=== PATIENT | male | born 1945 | race Caucasian/White ===

== ENCOUNTER 2016-08-01 02:20 | Inpatient (IN) ==
[2016-07-26 14:14] LABS: MANUAL DIFF NEEDED? NO; URINE MICRO REVIEW NEEDED? NO; URINE SOURCE VOIDED
[2016-07-26 14:18] LABS: BASO% 0.2 % (0.0-0.8); EOS# 0.35 X1000 (0.0-0.7); HEMATOCRIT 44.4 % (42.0-52.0); LYMPH# 3.38 X1000 (1.2-3.4); LYMPH% 38.9 % (20.5-51.1); MCH 31.7 PG (27-31); MCHC 33.8 g/dL (33-37); MCV 93.9 FL (81-99); MONO# 1.15 X1000 (0.11-0.59); MONO% 13.2 % (1.7-9.3); MPV 11.3 FL (7.4-10.4); NEUT% 43.7 % (42.2-75.2); PLT 162 X1000 (130-400); RBC 4.73 XMIL (4.7-6.1)
[2016-07-26 14:19] LABS: BILIRUBIN URINE NEGATIVE (NEGATIVE); BLOOD URINE NEGATIVE (NEGATIVE); COLOR YELLOW; GLUCOSE URINE NEGATIVE (NEGATIVE); LEUKOCYTES URINE NEGATIVE (NEGATIVE); NITRITE URINE NEGATIVE (NEGATIVE); PH URINE 5.5; PROTEIN URINE TRACE mg/dL (NEGATIVE); SP GRAVITY URINE 1.029; TURBIDITY URINE CLEAR (CLEAR); UROBILINOGEN URINE 2 mg/dL (NORMAL)
[2016-07-26 14:21] LABS: UR EPITHELIAL CELLS <10 /HPF (<10); URINE BACTERIA NEGATIVE /HPF; URINE RBC <10 /HPF (<10); URINE WBC <10 /HPF (<10)
[2016-07-26 14:36] LABS: INR 1.04; PROTIME 10.9 Seconds (9.2-11.7); PTT 22.2 Seconds (22.0-36.0)
[2016-07-26 15:28] LABS: AGAP 13; BUN 15 mg/dL (8-22); CALCIUM 9.3 mg/dL (8.8-10.2); CHLORIDE 102 mmol/L (98-107); COSMO 283; POTASSIUM 3.5 mmol/L (3.5-5.1); SODIUM 142 mmol/L (136-145); TCO2 27 mmol/L (25-35)
--- NOTE | 2016-07-26 15:45 | EKG Report ---
Test Performed on : 07/26/2016 1:46:29 PM Test Reason : PAT Blood Pressure : / mmHG Vent. Rate : 070 BPM Atrial Rate : 070 BPM P-R Int : 194 ms QRS Dur : 116 ms QT Int : 426 ms P-R-T Axes : 051 007 029 degrees QTc Int : 460 ms Normal sinus rhythm. Incomplete right bundle branch block Borderline ECG No previous ECGs available Confirmed by Inder ALFREDO, Loki Sanders ([id number]) on 07/27/2016 6:32:18 PM
[2016-08-01] MEDS ORDERED: MORPHINE IV PRN (06:50)
[2016-08-01] MEDS ORDERED: COLACE ONE (07:35)
[2016-08-01] MEDS ORDERED: PEPCID ONE (07:35)
[2016-08-01] MEDS ORDERED: LR 1,000 ML ONE (07:36)
[2016-08-01] MEDS ORDERED: REGLAN ONE (07:36)
[2016-08-01] MEDS ORDERED: LYRICA ONE (07:36)
[2016-08-01] MEDS ORDERED: KEFZOL 2 GM/D5W 2 GM/50 ML IVPB ONE (07:36)
[2016-08-01] MEDS ORDERED: CELEBREX ONE (07:36)
[2016-08-01] MEDS ORDERED: TORADOL ONE (08:03)
[2016-08-01] MEDS ORDERED: VANCOMYCIN ONE (08:04)
[2016-08-01] MEDS ORDERED: SODIUM CHLORIDE 0.9% ONE (08:04)
[2016-08-01] MEDS ORDERED: DURAMORPH ONE (08:04)
[2016-08-01] MEDS ORDERED: MARCAINE 0.25% PF/EPI 1:200,000 ONE (08:04)
[2016-08-01] MEDS ORDERED: EXPAREL 1.3% ONE (08:04)
[2016-08-01] MEDS ORDERED: NEOSPORIN G.U. IRRIGANT ONE (08:04)
[2016-08-01] MEDS ORDERED: CLAVE SECONDARY SET 11953 ONE (08:04)
[2016-08-01] MEDS ORDERED: CYKLOKAPRON 1,000 MG/NS 1,000 MG/100 ML IVPB ONE ×2 (08:07)
[2016-08-01] MEDS ORDERED: CELEBREX PO SCH (09:00)
[2016-08-01] MEDS ORDERED: COLACE PO SCH (09:00)
[2016-08-01 09:40] LABS: URINE MICRO REVIEW NEEDED? NO; URINE SOURCE VOIDED
[2016-08-01 09:45] LABS: BILIRUBIN URINE NEGATIVE (NEGATIVE); BLOOD URINE NEGATIVE (NEGATIVE); COLOR YELLOW; GLUCOSE URINE NEGATIVE (NEGATIVE); LEUKOCYTES URINE NEGATIVE (NEGATIVE); NITRITE URINE NEGATIVE (NEGATIVE); PROTEIN URINE 30 mg/dL (NEGATIVE); SP GRAVITY URINE 1.034; TURBIDITY URINE CLEAR (CLEAR); UR EPITHELIAL CELLS <10 /HPF (<10); URINE BACTERIA NEGATIVE /HPF; URINE RBC <10 /HPF (<10); URINE WBC <10 /HPF (<10); UROBILINOGEN URINE NORMAL (NORMAL)
[2016-08-01] MEDS ORDERED: NS 1,000 ML ONE (10:51)
[2016-08-01] MEDS: NS 1,000 ML IV SCH (11:50)
--- NOTE | 2016-08-01 13:57 | OPERATIVE NOTE ---
PROCEDURE DATE: 08/01/2016 PREOPERATIVE DIAGNOSIS: Degenerative joint disease, right knee. POSTOPERATIVE DIAGNOSIS: Degenerative joint disease, right knee. PROCEDURE PERFORMED: Right total knee replacement. SURGEON: Karen Andrade MD REPRINT SORTER: ARACELY Sharp ANESTHESIA: Spinal. COMPLICATION: None. PROCEDURE IN DETAIL: This 70-year-old male presents for right knee replacement. Risks, benefits, and no guarantees were discussed, and the patient is willing to proceed. He was taken to the operating room and satisfactory anesthesia obtained. The right knee was prepped and draped in usual sterile fashion. A time-out was taken to confirm operative site, procedure, and patient. The leg was wrapped with an Esmarch and the tourniquet inflated 350 mmHg. A midline incision was made, followed by a quad tendon sparing arthrotomy. The patella was everted and resurfaced with freehand technique. With the patella subluxed laterally. The knee was flexed. An intramedullary guide used to place the tibial cutting block in 5 degrees of valgus. The distal femoral resection was made with additional +1 mm cut due to a flexion contracture. The distal femur was sized to a DePuy Attune size 7 femoral component. The 4 in 1 block was secured and the anterior, posterior, and chamfer cuts sequentially made. The notch was created for posterior stabilized design using the provided notch guide. Any osteophytes were debrided about the femur. The knee was flexed and a PCL retractor placed behind the tibia to protect the neurovascular bundle. The tibial cutting block was secured with extramedullary alignment and tibial resection made. Flexion and extension gaps were noted to be slightly tight. An additional 2 mm taken off the tibia. The tibia was sized to a size 8 tibial tray. A trial reduction was performed with good stability with a size 7 mm thick poly. The patella was sized to a 41 medialized dome patella. The drill paddle used to prepare for the patellar implant. All trial components were removed and the bony surfaces thoroughly irrigated with pulsatile lavage. Cement with a gram of vancomycin was then utilized to cement a DePuy size 8 Attune rotating platform tibial tray, a size 7 right cruciate retaining Attune femoral component and a 41 medialized dome patella. While the cement cured, the joint capsule was injected with Exparel for pain management and a Hemovac drain placed. After curing of the cement, excess cement was removed with an osteotome if needed and a size 7, 7 mm thick posterior stabilized tibial poly placed in the tibial tray and the knee reduced. Final range of motion was 0-120 degrees with good soft tissue balance and midline patellar tracking. The arthrotomy was then copiously irrigated and closed over the drain with #1 Vicryl in the arthrotomy, 2-0 Vicryl in the subcutaneous, and skin xuan on the skin edges. Sterile dressings completed the closure and the patient was recovered from anesthesia and transferred to the recovery room in stable condition. No intraoperative complications were noted. Instrument count and sponge count was correct at the time of closure. cc: Abbe Andrade MD
[2016-08-01] MEDS: KEFZOL 1 GM/D5W 1 GM/50 ML IVPB IV SCH (17:08)
[2016-08-01] MEDS: OCUVITE LUTEIN & ZEAXANTHIN PO SCH (17:10)
[2016-08-01] MEDS: PRILOSEC PO SCH ×2 (17:10→22:00)
[2016-08-01] MEDS: LASIX PO SCH ×2 (17:11→19:32)
[2016-08-01] MEDS: IMDUR PO SCH (17:11)
[2016-08-01] MEDS ORDERED: VERSED ONE (18:12)
--- NOTE | 2016-08-01 18:12 | PROGRESS NOTE ---
DATE: 08/01/2016 Mr. Russ is seen for postoperative care of his total knee. He is doing well at the present time. He is awake and alert. He reports minimal pain. The incision is clean and dry and bandage intact. He is motor and sensory intact. Vital signs are stable. cc: Abbe Andrade MD
[2016-08-01] MEDS ORDERED: FENTANYL ONE (18:13)
[2016-08-01] MEDS ORDERED: DIPRIVAN 1% ONE (18:13)
[2016-08-01] MEDS: NORCO-10 PO PRN ×2 (19:32→23:16)
--- NOTE | 2016-08-01 20:50 | Diag Imaging Result Document ---
PROCEDURE NAME: KNEE 1-2 VIEWS-RIGHT - 08/01/2016 RIGHT KNEE, PORTABLE 2 VIEWS: There has been orthopedic replacement of the right knee. Good alignment to the femoral and tibial components. There are anterior skin xuan as well as a superior surgical drain. No fracture or dislocation. IMPRESSION: Recently replaced right knee.
[2016-08-01] MEDS ORDERED: LIPITOR PO SCH (21:00)
[2016-08-01] MEDS ORDERED: TOPROL XL PO SCH (21:00)
[2016-08-01] MEDS ORDERED: ZYRTEC PO SCH (21:00)
[2016-08-01] MEDS: GLUCOSAMINE 500 MG/CHONDROITIN 400 MG PO SCH (21:59)
[2016-08-01] MEDS: COLACE PO SCH (22:00)
[2016-08-01] MEDS: PERIDEX MT SCH (22:00)
[2016-08-02] MEDS: KEFZOL 1 GM/D5W 1 GM/50 ML IVPB IV SCH (00:08)
[2016-08-02] MEDS: NS 1,000 ML IV SCH (00:11)
[2016-08-02 05:42] LABS: HEMATOCRIT 36.1 % (42.0-52.0); HEMOGLOBIN 12.3 g/dL (14.0-18.0)
[2016-08-02 06:00] LABS: AGAP 13; BUN 14 mg/dL (8-22); CALCIUM 8.6 mg/dL (8.8-10.2); CHLORIDE 104 mmol/L (98-107); COSMO 283; POTASSIUM 4.3 mmol/L (3.5-5.1); SODIUM 141 mmol/L (136-145); TCO2 24 mmol/L (25-35)
[2016-08-02] MEDS ORDERED: XARELTO PO SCH (06:00)
[2016-08-02] MEDS: NORCO-10 PO PRN ×2 (06:05→10:33)
[2016-08-02] MEDS: PRILOSEC PO SCH (06:31)
[2016-08-02 07:39] VITALS: BP 112/55
[2016-08-02] MEDS: GLUCOSAMINE 500 MG/CHONDROITIN 400 MG PO SCH (07:51)
[2016-08-02] MEDS: COLACE PO SCH (07:51)
[2016-08-02] MEDS: IMDUR PO SCH (07:51)
[2016-08-02] MEDS: OCUVITE LUTEIN & ZEAXANTHIN PO SCH (07:51)
[2016-08-02] MEDS: PERIDEX MT SCH (07:52)
[2016-08-02] MEDS: LASIX PO SCH (07:52)
--- NOTE | 2016-08-02 07:58 | HISTORY AND PHYSICAL ---
CHIEF COMPLAINT: Right knee pain. HISTORY OF PRESENT ILLNESS: This is a 70-year-old male with a history of gradually increasing pain in his right knee. He states he has had a long history of knee pain. He has had a knee scoped in the past which only helped for a short period of time. He was evaluated in the office and found to need a right total knee arthroplasty. The surgical procedure as well as risks and benefits were explained to the patient at this time and he agreed to proceed. ALLERGIES: Mycins. PAST MEDICAL HISTORY: Serious illnesses: Sleep apnea, hypertension, coronary artery disease. PAST SURGICAL HISTORY: He has had back surgery x3, both knees scoped, and both shoulders. REGULAR MEDICATIONS: Aspirin 81 one a day, atorvastatin 40 one at night, Zyrtec 10 one a day, Lasix 40 one a day, isosorbide 60 one a day, meloxicam 15 one a day, Toprol-XL 25 at night, omeprazole 20 twice a day. REVIEW OF SYSTEMS: HEENT: Has history of sleep apnea and history of macular degeneration. Heart: States he does not have chest pain and has never had an TN but he gives a vague history of the arteries around his heart are small. Respiratory: No history of asthma, emphysema, shortness of breath. Abdomen: He has a history of reflux; takes medication for this. No history of bowel or bladder abnormalities. PHYSICAL EXAMINATION: GENERAL: This is a 70-year-old male, alert and oriented. His primary care physician is Dr. Hilario. HEENT: Pupils equal, round, reactive. NECK: Good range of motion without adenopathy. RESPIRATORY: Respirations equal and unlabored, clear bilaterally. HEART: Regular rate and rhythm. ABDOMEN: Soft, nontender. Bowel sounds present. EXTREMITIES: He complains of pain in his right knee. He does have some swelling at this time. He has difficulty walking. He has good sensation and pulses distally. IMPRESSION: Degenerative disease, right knee. PLAN: Admit at this time for right total knee arthroplasty. Dictated by John Paz RN for Abbe Andrade MD This chart was documented by the indicated scribe, John Paz RN and accurately reflects the services I performed and decisions made by me, Abbe Andrade MD, as attested by the provider's signature. cc: Abbe Andrade MD
[2016-08-02] MEDS ORDERED: CELEBREX PO SCH (09:00)
[2016-08-02] MEDS ORDERED: FISH OIL CONCENTRATE PO SCH (09:00)
[2016-08-02] MEDS ORDERED: ZOFRAN ONE (09:16)
[2016-08-02] MEDS ORDERED: DECADRON ONE (09:17)
[2016-08-02] MEDS ORDERED: STERILE WATER INJ. ONE (09:17)
[2016-08-02] MEDS ORDERED: XYLOCAINE-MPF 2% ONE (09:17)
[2016-08-02] MEDS ORDERED: LR 2,000 ML ONE (09:17)
[2016-08-02] MEDS ORDERED: OFIRMEV 1000 MG/ISOTONIC SOLN 1,000 MG/100 ML BOTTLE ONE (09:17)
--- NOTE | 2016-08-02 11:20 | DISCHARGE SUMMARY ---
ADMISSION DATE: 08/01/2016 DISCHARGE DATE: 08/02/2016 ADMITTING DIAGNOSIS: Degenerative joint disease, right knee. ADDITIONAL DIAGNOSES: 1. Sleep apnea. 2. Hypertension. 3. Coronary artery disease. DISCHARGE DIAGNOSES: 1. Degenerative joint disease, right knee. 2. Sleep apnea. 3. Hypertension. 4. Coronary artery disease. ADMITTING HISTORY AND HOSPITAL COURSE: Mr. Russ is a 70-year-old white male with a history of arthritis in his right knee. He was admitted to the hospital for a right total knee arthroplasty yesterday, and after his surgery, he remained afebrile. His vital signs remained stable. Currently, his hematocrit is 36.1. DISPOSITION: We plan to discharge him home with home health today. DISCHARGE MEDICATIONS: 1. Isosorbide mononitrate ER 60 mg p.o. daily. 2. Lasix 40 mg p.o. daily. 3. Vitamins C/E/ZN/COPPR/lutein/ZEAXAN 2 p.o. daily. 4. Toprol-XL 25 mg p.o. at bedtime. 5. Atorvastatin calcium 40 mg p.o. at bedtime. 6. Omeprazole 20 mg p.o. b.i.d. 7. Fish oil 1 p.o. daily. 8. Glucosamine chondroitin capsule 1 p.o. b.i.d. 9. Zyrtec 10 mg p.o. at bedtime. 10. Xarelto 10 mg p.o. daily for 14 days. 11. [place] 10, 1-2 p.o. q.4-6 hours p.r.n. for pain. DISCHARGE INSTRUCTIONS: Mr. Russ is to discharge home today where he will begin a home physical therapy regimen. I discussed with him that he will be going home on a blood thinner and pain medication. If he has any questions or concerns about anything having do with his surgery, he is to call the office immediately. I discussed with him if he has any worsening signs or symptoms to call the office. He will need to return to the office in about 10 days to have his xuan removed and have his followup appoint with Dr. Andrade. Dictated by ARACELY Sharp for Abbe Andrade MD cc: ARACELY Sharp MD
== END 2016-08-02 13:04 | disposition home health service (06) ==
LOC: SURHOLD 02:20 → 4N 08:41
PROVIDERS: ADMIT Orthopaedic Surgery Adult Reconstructive Orthopaedic Surgery; ATTEND Orthopaedic Surgery Adult Reconstructive Orthopaedic Surgery